=== PATIENT | male | born 1945 | race Caucasian/White ===

== ENCOUNTER 2022-02-13 05:01 | Inpatient (IN) ==
[2022-02-13] MEDS ORDERED: methylPREDNISolone SOD SUC 125 MG/2 ML VIAL IV STA (05:21)
[2022-02-13] MEDS ORDERED: ONDANSETRON 4 MG/2 ML VIAL IV STA (05:21)
[2022-02-13] MEDS ORDERED: PIPERACILLIN/TAZOBACTAM 3,375 MG in SODIUM CHLORIDE 0.9% 100 ML IV STA (05:21)
[2022-02-13] MEDS ORDERED: ALBUTEROL/IPRATROPIUM 3 ML NEB RESP TX STA (05:21)
[2022-02-13] MEDS ORDERED: ALBUTEROL NEB SOLN 5 MG/ML 20 ML/BOTTLE CONT NEB SCH (05:30)
[2022-02-13 05:59] LABS: Basophils # 0.1 10*3/uL (0.0-0.2); Basophils % 0.3 % (0.0-0.8); Eosinophils % 0.1 % (0.00-10.9); Hematocrit 42.2 VOL% (42.0-52.0); Hemoglobin 13.1 GM/DL (14.0-18.0); Immature Granulocytes % 1.9 %; Immature Granulocytes Absolute 0.35 #; Lymphocytes # 2.5 10*3/uL (1.4-4.0); Lymphocytes % 13.5 % (21.2-54.2); Mean Corpuscular Volume 102.4 FL (87-102); Mean Platelet Volume 10.4 FL (9.6-12.0); Monocytes # 2.1 10*3/uL (0.11-0.8); Monocytes % 11.4 % (1.7-12.7); Neutrophils % 72.8 % (38.7-73.9); Platelet Count 294 T/CUMM (130-400); Red Blood Count 4.12 MC/CUMM (3.8-5.5); Red Cell Distribution Width 12.7 % (9.3-17.3); White Blood Count 18.4 T/CUMM (4-12)
[2022-02-13 06:00] LABS: ABG Base Excess -28.3 MMOL/L (-2.5-2.5); ABG HCO3 5.9 MMOL/L (20-26); ABG Oxygen Saturation 91.2 % (95-100); ABG PCO2 21.9 MM HG (35-48); ABG TCO2 4.4 MMOL/L (23-27)
[2022-02-13 06:02] LABS: ABG PH 6.911 (7.35-7.45)
[2022-02-13 06:55] LABS: Alanine Aminotransferase 31 U/L (16-61); Albumin 3.4 G/DL (3.4-5.0); Alkaline Phosphatase 65 U/L (45-117); Aspartate Amino Transferase 21 U/L (0-37); Bilirubin,Total < 0.39 MG/DL (0.20-1.00); Blood Urea Nitrogen 71 MG/DL (7-18); Carbon Dioxide 6 MMOL/L (21-32); Chloride 83 MMOL/L (98-107); Glucose 436 MG/DL (74-106); Osmolality,Calculated 277.5 MOS/KG (273-304); Total Protein 7.7 G/DL (6.4-8.2)
[2022-02-13] MEDS ORDERED: SODIUM BICARBONATE 50 MEQ/50 ML VIAL IV STA ×2 (06:57→07:15)
[2022-02-13 06:58] LABS: Potassium 6.1 MMOL/L (3.5-5.1)
[2022-02-13 06:59] LABS: Sodium 118 MMOL/L (136-145)
[2022-02-13] MEDS ORDERED: ALBUTEROL 2.5 MG/3 ML NEB RESP TX PRN (07:12)
[2022-02-13] MEDS ORDERED: ONDANSETRON 4 MG/2 ML VIAL IV PRN (07:12)
[2022-02-13] MEDS ORDERED: SODIUM CHLORIDE 0.9% 1,000 ML IV ONE ×3 (07:15→09:55)
[2022-02-13] MEDS ORDERED: ETOMIDATE 20 MG/10 ML VIAL IV ONE ×4 (07:35→08:07)
[2022-02-13] MEDS ORDERED: SUCCINYLCHOLINE 200 MG/10 ML VIAL ONE (07:36)
[2022-02-13] MEDS: SODIUM CHLORIDE 0.9% 1,000 ML IV SCH ×2 (07:50→16:15)
[2022-02-13] MEDS ORDERED: SUCCINYLCHOLINE 200 MG/10 ML VIAL IV ONE (07:56)
[2022-02-13] MEDS ORDERED: INSULIN REGULAR 100 UNIT/ML IV ONE (07:56)
[2022-02-13] MEDS ORDERED: SODIUM BICARBONATE 50 MEQ/50 ML SYRINGE IV ONE (08:00)
[2022-02-13] MEDS ORDERED: NOREPINEPHRINE 8 MG in SODIUM CHLORIDE 0.9% 242 ML IV PRN (08:00)
[2022-02-13] MEDS: fentaNYL INJ 1,250 MCG in SODIUM CHLORIDE 0.9% 225 ML IV PRN ×2 (08:15→21:00)
[2022-02-13] MEDS: MIDAZOLAM 100 MG in SODIUM CHLORIDE 0.9% 80 ML IV PRN ×2 (08:20→19:00)
[2022-02-13 09:48] LABS: Arterial PCO2 iSTAT 43 MM HG (35-48); Arterial PO2 iSTAT 343 MM HG (80-95); Arterial pH iSTAT < 6.500 (7.35-7.45)
[2022-02-13 09:48] LABS: Arterial PCO2 iSTAT 40 MM HG (35-48); Arterial PO2 iSTAT 255 MM HG (80-95); Arterial pH iSTAT < 6.500 (7.35-7.45)
[2022-02-13] MEDS ORDERED: SODIUM BICARBONATE 50 MEQ/50 ML VIAL IV ONE (09:54)
[2022-02-13 09:55] LABS: ABG Base Excess -24.7 MMOL/L (-2.5-2.5); ABG HCO3 7.4 MMOL/L (20-26); ABG Oxygen Saturation 98.5 % (95-100); ABG PCO2 40.6 MM HG (35-48); ABG TCO2 8.1 MMOL/L (23-27)
[2022-02-13 09:58] LABS: ABG PH 6.901 (7.35-7.45)
[2022-02-13 10:12] LABS: Calcium 6.7 MG/DL (8.5-10.1); Osmolality,Calculated 289.6 MOS/KG (273-304); Potassium 5.5 MMOL/L (3.5-5.1)
[2022-02-13] MEDS: INSULIN REGULAR DRIP 100 ML IV PRN ×2 (12:00→23:18)
[2022-02-13] MEDS ORDERED: CALCIUM GLUCONATE RIDER 2,000 MG/100 ML PREMIX IV ONE ×2 (12:38→16:24)
[2022-02-13] MEDS: HEPARIN DRIP 25,000 UNITS/500 ML PREMIX IV SCH (13:00)
[2022-02-13] MEDS: LEVOTHYROXINE 25 MCG TABLET PO SCH (13:39)
[2022-02-13] MEDS: DEXAMETHASONE 4 MG/1 ML VIAL IV SCH (13:39)
[2022-02-13] MEDS: FAMOTIDINE 20 MG/2 ML VIAL IV SCH (13:40)
[2022-02-13] MEDS: AZITHROMYCIN INJ 500 MG in SODIUM CHLORIDE 0.9% 250 ML IV SCH (13:40)
[2022-02-13] MEDS: cefTRIAXone 1,000 MG in SODIUM CHLORIDE 0.9% 100 ML IV SCH (13:40)
[2022-02-13 16:20] LABS: Calcium 7.7 MG/DL (8.5-10.1); Osmolality,Calculated 277.9 MOS/KG (273-304); Potassium 4.4 MMOL/L (3.5-5.1)
[2022-02-13 16:21] LABS: ABG Base Excess -9.6 MMOL/L (-2.5-2.5); ABG HCO3 16.8 MMOL/L (20-26); ABG Oxygen Saturation 98.9 % (95-100); ABG PH 7.288 (7.35-7.45); ABG TCO2 14.9 MMOL/L (23-27)
[2022-02-13] MEDS: SODIUM BICARB INJ 150 MEQ in STERILE WATER INJ 1,000 ML IV SCH (20:37)
[2022-02-13] MEDS: NYSTATIN POWDER 15 GM BOTTLE TOP SCH (20:37)
[2022-02-13] MEDS ORDERED: DEXTROSE 5% 1,000 ML IV SCH (22:30)
[2022-02-13 22:38] LABS: Calcium 7.9 MG/DL (8.5-10.1); Osmolality,Calculated 276.8 MOS/KG (273-304); Potassium 4.5 MMOL/L (3.5-5.1)
[2022-02-14 03:21] LABS: ABG Base Excess 6.8 MMOL/L (-2.5-2.5); ABG HCO3 30.7 MMOL/L (20-26); ABG Oxygen Saturation 99.1 % (95-100); ABG PCO2 44.4 MM HG (35-48); ABG PH 7.459 (7.35-7.45); ABG TCO2 28.4 MMOL/L (23-27)
[2022-02-14 03:22] LABS: Basophils % 0.1 % (0.0-0.8); Hematocrit 28.5 VOL% (42.0-52.0); Immature Granulocytes % 0.8 %; Immature Granulocytes Absolute 0.08 #; Lymphocytes # 0.7 10*3/uL (1.4-4.0); Lymphocytes % 7.7 % (21.2-54.2); Mean Corpuscular HGB Conc 35.1 GM/DL (32-36); Mean Corpuscular Volume 91.3 FL (87-102); Monocytes # 1.3 10*3/uL (0.11-0.8); Neutrophils % 78.4 % (38.7-73.9); Platelet Count 111 T/CUMM (130-400); Red Blood Count 3.12 MC/CUMM (3.8-5.5); Red Cell Distribution Width 12.9 % (9.3-17.3); White Blood Count 9.6 T/CUMM (4-12)
[2022-02-14 03:44] LABS: Lymphocytes 3 % (20-55); Total Cells Counted 100
[2022-02-14 03:49] LABS: Albumin 2.3 G/DL (3.4-5.0); Bilirubin,Total 0.4 MG/DL (0.20-1.00); Calcium 7.1 MG/DL (8.5-10.1); Osmolality,Calculated 275.8 MOS/KG (273-304); Potassium 4.5 MMOL/L (3.5-5.1); Risk Ratio 4.46; Thyroid Stimulating Hormone 0.685 uIU/ml (0.358-3.74); Total Protein 5.5 G/DL (6.4-8.2); VLDL Cholesterol 28.8 MG/DL
[2022-02-14] MEDS: SODIUM BICARB INJ 150 MEQ in STERILE WATER INJ 1,000 ML IV SCH (05:15)
[2022-02-14] MEDS ORDERED: MAGNESIUM SULF RIDER 2 GM/50 ML PREMIX IV ONE (06:46)
[2022-02-14] MEDS ORDERED: CALCIUM GLUCONATE RIDER 1,000 MG/50 ML PREMIX IV ONE (06:46)
[2022-02-14] MEDS: INSULIN GLARGINE 100 UNIT/ML SUBCUT SCH (08:20)
[2022-02-14] MEDS: NYSTATIN POWDER 15 GM BOTTLE TOP SCH ×3 (08:34→20:30)
[2022-02-14] MEDS: FUROSEMIDE 40 MG/4 ML VIAL IV SCH (08:36)
[2022-02-14] MEDS: FAMOTIDINE 20 MG/2 ML VIAL IV SCH (08:36)
[2022-02-14] MEDS: DEXAMETHASONE 4 MG/1 ML VIAL IV SCH (08:36)
[2022-02-14] MEDS: MONTELUKAST 10 MG TABLET PO SCH (08:37)
[2022-02-14] MEDS: CHOLECALCIFEROL 1,000 UNIT TABLET PO SCH (08:37)
[2022-02-14] MEDS: HEPARIN DRIP 25,000 UNITS/500 ML PREMIX IV SCH ×2 (08:50→12:10)
[2022-02-14 10:23] LABS: Calcium 7.4 MG/DL (8.5-10.1); Osmolality,Calculated 272.1 MOS/KG (273-304); Potassium 4.3 MMOL/L (3.5-5.1)
[2022-02-14] MEDS: AZITHROMYCIN INJ 500 MG in SODIUM CHLORIDE 0.9% 250 ML IV SCH (12:02)
[2022-02-14] MEDS: LEVOTHYROXINE 25 MCG TABLET PO SCH (13:06)
[2022-02-14] MEDS: cefTRIAXone 1,000 MG in SODIUM CHLORIDE 0.9% 100 ML IV SCH (13:08)
[2022-02-14] MEDS ORDERED: DEXTROSE 10% 250 ML BAG IV PRN (13:40)
[2022-02-14] MEDS ORDERED: GLUCAGON 1 MG VIAL IM PRN (13:40)
[2022-02-14 15:58] LABS: Calcium 7.3 MG/DL (8.5-10.1); Osmolality,Calculated 281.1 MOS/KG (273-304); Potassium 4.8 MMOL/L (3.5-5.1)
[2022-02-14] MEDS: MIDAZOLAM 100 MG in SODIUM CHLORIDE 0.9% 80 ML IV PRN (17:00)
[2022-02-14] MEDS: fentaNYL INJ 1,250 MCG in SODIUM CHLORIDE 0.9% 225 ML IV PRN (17:00)
[2022-02-14] MEDS: INSULIN REGULAR 100 UNIT/ML SUBCUT SCH (17:02)
[2022-02-15] MEDS: INSULIN REGULAR 100 UNIT/ML SUBCUT SCH ×6 (00:47→20:30)
[2022-02-15 03:04] LABS: ABG Base Excess 5.4 MMOL/L (-2.5-2.5); ABG HCO3 29.2 MMOL/L (20-26); ABG Oxygen Saturation 95.2 % (95-100); ABG PCO2 42.3 MM HG (35-48); ABG PH 7.455 (7.35-7.45); ABG PO2 77.6 MM HG (80-95); ABG TCO2 26.9 MMOL/L (23-27)
[2022-02-15 03:15] LABS: Basophils % 0.1 % (0.0-0.8); Hematocrit 28.9 VOL% (42.0-52.0); Hemoglobin 9.9 GM/DL (14.0-18.0); Immature Granulocytes % 1.3 %; Immature Granulocytes Absolute 0.15 #; Lymphocytes # 0.7 10*3/uL (1.4-4.0); Lymphocytes % 5.9 % (21.2-54.2); Mean Corpuscular HGB Conc 34.3 GM/DL (32-36); Mean Corpuscular Volume 92.6 FL (87-102); Mean Platelet Volume 10.6 FL (9.6-12.0); Monocytes % 8.6 % (1.7-12.7); Neutrophils % 84.1 % (38.7-73.9); Platelet Count 133 T/CUMM (130-400); Red Blood Count 3.12 MC/CUMM (3.8-5.5); Red Cell Distribution Width 12.9 % (9.3-17.3); White Blood Count 11.5 T/CUMM (4-12)
[2022-02-15] MEDS: METOPROLOL TARTRATE 5 MG/5 ML VIAL IV PRN (03:20)
[2022-02-15 03:40] LABS: Albumin 2.4 G/DL (3.4-5.0); Bilirubin,Total 0.4 MG/DL (0.20-1.00); Calcium 7.1 MG/DL (8.5-10.1); Osmolality,Calculated 290.1 MOS/KG (273-304); Potassium 4.6 MMOL/L (3.5-5.1)
[2022-02-15] MEDS ORDERED: INSULIN REGULAR 100 UNIT/ML ONE (03:48)
[2022-02-15 03:53] LABS: Phosphorous 7.7 MG/DL (2.5-4.9)
[2022-02-15] MEDS: FAMOTIDINE 20 MG/2 ML VIAL IV SCH (06:30)
[2022-02-15] MEDS ORDERED: DEXMEDETOMIDINE 200 MCG in SODIUM CHLORIDE 0.9% 48 ML IV PRN (07:03)
[2022-02-15] MEDS: FUROSEMIDE 40 MG/4 ML VIAL IV SCH (08:12)
[2022-02-15] MEDS: INSULIN GLARGINE 100 UNIT/ML SUBCUT SCH ×2 (08:12→09:27)
[2022-02-15] MEDS ORDERED: SODIUM CHLORIDE 3% INJ 100 ML IV ONE (08:13)
[2022-02-15] MEDS: DEXAMETHASONE 4 MG/1 ML VIAL IV SCH (08:13)
[2022-02-15] MEDS: CHOLECALCIFEROL 1,000 UNIT TABLET PO SCH (08:15)
[2022-02-15] MEDS: MONTELUKAST 10 MG TABLET PO SCH (08:15)
[2022-02-15] MEDS ORDERED: SODIUM CHLORIDE 3% INJ 50 ML IV ONE (08:16)
[2022-02-15] MEDS: HEPARIN DRIP 25,000 UNITS/500 ML PREMIX IV SCH ×2 (08:56→20:49)
[2022-02-15] MEDS: NYSTATIN POWDER 15 GM BOTTLE TOP SCH ×3 (08:57→20:10)
[2022-02-15] MEDS ORDERED: hydroCHLOROthiazide 25 MG TABLET PO SCH (09:00)
[2022-02-15] MEDS: METOPROLOL TARTRATE 50 MG TABLET PO SCH ×2 (09:28→20:10)
[2022-02-15] MEDS: CALCIUM CARBONATE CHEW 500 MG TABLET PO SCH ×2 (09:28→20:10)
[2022-02-15] MEDS: cefTRIAXone 1,000 MG in SODIUM CHLORIDE 0.9% 100 ML IV SCH (12:10)
[2022-02-15] MEDS: AZITHROMYCIN INJ 500 MG in SODIUM CHLORIDE 0.9% 250 ML IV SCH (12:10)
[2022-02-15 15:26] LABS: Hepatitis B Core IgM Quant 0.14 Index; Hepatitis B Surface Ag Quant < 0.10 Index; Hepatitis B Surface Ag Result Non-Reactive (NonReactive); Hepatitis C Virus Ab Quant < 0.02 Index; Hepatitis C Virus Ab Result Non-Reactive (NonReactive)
[2022-02-15] MEDS: DONEPEZIL 10 MG TABLET PO SCH (20:10)
[2022-02-16] MEDS: INSULIN REGULAR 100 UNIT/ML SUBCUT SCH ×6 (00:20→20:02)
[2022-02-16 04:06] LABS: Basophils % 0.2 % (0.0-0.8); Hematocrit 29.1 VOL% (42.0-52.0); Hemoglobin 9.8 GM/DL (14.0-18.0); Immature Granulocytes % 2.6 %; Immature Granulocytes Absolute 0.33 #; Lymphocytes # 0.8 10*3/uL (1.4-4.0); Mean Corpuscular HGB Conc 33.7 GM/DL (32-36); Mean Corpuscular Volume 95.4 FL (87-102); Mean Platelet Volume 10.7 FL (9.6-12.0); Monocytes % 7.4 % (1.7-12.7); Neutrophils % 83.8 % (38.7-73.9); Platelet Count 142 T/CUMM (130-400); Red Blood Count 3.05 MC/CUMM (3.8-5.5); White Blood Count 12.9 T/CUMM (4-12)
[2022-02-16 04:08] LABS: ABG Base Excess 5.5 MMOL/L (-2.5-2.5); ABG HCO3 29.2 MMOL/L (20-26); ABG Oxygen Saturation 91.8 % (95-100); ABG PCO2 48.2 MM HG (35-48); ABG PH 7.422 (7.35-7.45); ABG PO2 69.7 MM HG (80-95); ABG TCO2 25.7 MMOL/L (23-27)
[2022-02-16 04:29] LABS: Albumin 2.4 G/DL (3.4-5.0); Bilirubin,Total 0.4 MG/DL (0.20-1.00); Calcium 7.5 MG/DL (8.5-10.1); Osmolality,Calculated 295.2 MOS/KG (273-304); Potassium 4.9 MMOL/L (3.5-5.1); Total Protein 6.2 G/DL (6.4-8.2)
[2022-02-16] MEDS: DEXAMETHASONE 4 MG/1 ML VIAL IV SCH (08:56)
[2022-02-16] MEDS: INSULIN GLARGINE 100 UNIT/ML SUBCUT SCH (08:56)
[2022-02-16] MEDS: FUROSEMIDE 40 MG/4 ML VIAL IV SCH (08:56)
[2022-02-16] MEDS: METOPROLOL TARTRATE 50 MG TABLET PO SCH ×2 (08:57→20:02)
[2022-02-16] MEDS: CALCIUM CARBONATE CHEW 500 MG TABLET PO SCH ×2 (08:57→20:02)
[2022-02-16] MEDS: MONTELUKAST 10 MG TABLET PO SCH (08:57)
[2022-02-16] MEDS: NYSTATIN POWDER 15 GM BOTTLE TOP SCH ×3 (08:57→20:02)
[2022-02-16] MEDS: CHOLECALCIFEROL 1,000 UNIT TABLET PO SCH (08:57)
[2022-02-16] MEDS: FAMOTIDINE 20 MG/2 ML VIAL IV SCH (09:00)
[2022-02-16] MEDS: MORPHINE 2 MG/1 ML SYRINGE IV PRN ×3 (09:54→21:35)
[2022-02-16] MEDS: AZITHROMYCIN INJ 500 MG in SODIUM CHLORIDE 0.9% 250 ML IV SCH (12:16)
[2022-02-16] MEDS: cefTRIAXone 1,000 MG in SODIUM CHLORIDE 0.9% 100 ML IV SCH (12:16)
[2022-02-16] MEDS: DONEPEZIL 10 MG TABLET PO SCH (20:02)
[2022-02-17] MEDS: INSULIN REGULAR 100 UNIT/ML SUBCUT SCH ×6 (00:02→21:41)
[2022-02-17] MEDS: HEPARIN DRIP 25,000 UNITS/500 ML PREMIX IV SCH ×2 (01:44→07:33)
[2022-02-17] MEDS: MORPHINE 2 MG/1 ML SYRINGE IV PRN ×4 (01:44→22:52)
[2022-02-17 03:39] LABS: ABG Base Excess 6.1 MMOL/L (-2.5-2.5); ABG HCO3 29.9 MMOL/L (20-26); ABG Oxygen Saturation 96.1 % (95-100); ABG PCO2 48.3 MM HG (35-48); ABG PH 7.422 (7.35-7.45); ABG PO2 90.2 MM HG (80-95); ABG TCO2 28.5 MMOL/L (23-27)
[2022-02-17] MEDS ORDERED: cloNIDine 0.1 MG TABLET PO ONE (04:20)
[2022-02-17 04:49] LABS: Basophils # 0.1 10*3/uL (0.0-0.2); Basophils % 0.5 % (0.0-0.8); Hematocrit 32.2 VOL% (42.0-52.0); Hemoglobin 10.5 GM/DL (14.0-18.0); Immature Granulocytes % 7.2 %; Immature Granulocytes Absolute 1.09 #; Lymphocytes % 6.7 % (21.2-54.2); Mean Corpuscular HGB Conc 32.6 GM/DL (32-36); Mean Corpuscular Volume 97.6 FL (87-102); Mean Platelet Volume 10.5 FL (9.6-12.0); Monocytes # 1.2 10*3/uL (0.11-0.8); Monocytes % 7.8 % (1.7-12.7); Neutrophils % 77.8 % (38.7-73.9); Platelet Count 177 T/CUMM (130-400); Red Cell Distribution Width 13.1 % (9.3-17.3); White Blood Count 15.1 T/CUMM (4-12)
[2022-02-17 05:11] LABS: Lymphocytes 5 % (20-55); Platelet Estimate Adequate; Total Cells Counted 100
[2022-02-17 05:13] LABS: Albumin 2.5 G/DL (3.4-5.0); Bilirubin,Total 0.4 MG/DL (0.20-1.00); Calcium 8.2 MG/DL (8.5-10.1); Osmolality,Calculated 303.7 MOS/KG (273-304); Potassium 4.7 MMOL/L (3.5-5.1); Total Protein 6.6 G/DL (6.4-8.2)
[2022-02-17 05:34] LABS: Phosphorous 4.7 MG/DL (2.5-4.9)
[2022-02-17] MEDS: FAMOTIDINE 20 MG/2 ML VIAL IV SCH (08:30)
[2022-02-17] MEDS: DEXAMETHASONE 4 MG/1 ML VIAL IV SCH (08:33)
[2022-02-17] MEDS: CALCIUM CARBONATE CHEW 500 MG TABLET PO SCH ×2 (08:34→21:43)
[2022-02-17] MEDS: INSULIN GLARGINE 100 UNIT/ML SUBCUT SCH (08:34)
[2022-02-17] MEDS: CHOLECALCIFEROL 1,000 UNIT TABLET PO SCH (08:34)
[2022-02-17] MEDS: METOPROLOL TARTRATE 50 MG TABLET PO SCH ×2 (08:34→21:42)
[2022-02-17] MEDS: NYSTATIN POWDER 15 GM BOTTLE TOP SCH ×3 (08:34→21:42)
[2022-02-17] MEDS: MONTELUKAST 10 MG TABLET PO SCH (08:34)
[2022-02-17] MEDS: FUROSEMIDE 40 MG/4 ML VIAL IV SCH (08:38)
[2022-02-17] MEDS: LEVOTHYROXINE 25 MCG TABLET PO SCH (12:20)
[2022-02-17] MEDS: cefTRIAXone 1,000 MG in SODIUM CHLORIDE 0.9% 100 ML IV SCH (12:20)
[2022-02-17] MEDS ORDERED: AZITHROMYCIN INJ 500 MG in SODIUM CHLORIDE 0.9% 250 ML IV SCH (13:30)
[2022-02-17] MEDS: AZITHROMYCIN INJ 500 MG in SODIUM CHLORIDE 0.9% 250 ML IV SCH (13:31)
[2022-02-17 21:32] LABS: INR 0.9; PT Patient Result 10.3 SECS (10.1-12.1); Partial Thromboplastin Time 37.9 SECS (23.7-32.9)
[2022-02-17] MEDS: DONEPEZIL 10 MG TABLET PO SCH (21:42)
[2022-02-18] MEDS: INSULIN REGULAR 100 UNIT/ML SUBCUT SCH ×6 (00:46→21:05)
[2022-02-18 03:39] LABS: Basophils # 0.2 10*3/uL (0.0-0.2); Basophils % 0.9 % (0.0-0.8); Eosinophils % 0.1 % (0.00-10.9); Hematocrit 34.9 VOL% (42.0-52.0); Hemoglobin 11.6 GM/DL (14.0-18.0); Immature Granulocytes % 11.1 %; Immature Granulocytes Absolute 1.87 #; Lymphocytes # 1.9 10*3/uL (1.4-4.0); Mean Corpuscular HGB Conc 33.2 GM/DL (32-36); Mean Corpuscular Volume 96.1 FL (87-102); Monocytes # 1.4 10*3/uL (0.11-0.8); NRBC # 0.05 10*3/uL; Neutrophils % 68.9 % (38.7-73.9); Platelet Count 175 T/CUMM (130-400); Red Blood Count 3.63 MC/CUMM (3.8-5.5); White Blood Count 16.8 T/CUMM (4-12)
[2022-02-18 03:59] LABS: Eosinophils 1 % (0-10); Lymphocytes 19 % (20-55); Metamyelocytes 2 %; Myelocytes 3 %; Nucleated Red Blood Cells 1 (0-5); Total Cells Counted 100
[2022-02-18 04:00] LABS: Macrocytosis Slight; Platelet Estimate Adequate
[2022-02-18 04:03] LABS: Albumin 2.6 G/DL (3.4-5.0); Bilirubin,Total 0.4 MG/DL (0.20-1.00); Calcium 8.8 MG/DL (8.5-10.1); Osmolality,Calculated 307.4 MOS/KG (273-304); Potassium 4.5 MMOL/L (3.5-5.1); Total Protein 6.8 G/DL (6.4-8.2)
[2022-02-18 04:04] LABS: INR 0.9; PT Patient Result 10.4 SECS (10.1-12.1); Partial Thromboplastin Time 39.2 SECS (23.7-32.9)
[2022-02-18] MEDS: HEPARIN DRIP 25,000 UNITS/500 ML PREMIX IV SCH ×2 (04:08→14:22)
[2022-02-18 04:17] LABS: Ferritin 99.5 ng/mL (26-388)
[2022-02-18 04:38] LABS: Arterial Base Excess iSTAT 10 MMOL/L (-2.5-2.5); Arterial Bicarbonate iSTAT 34.4 MMOL/L (20-26); Arterial O2 Saturation iSTAT 99 % (95-100); Arterial PCO2 iSTAT 46 MM HG (35-48); Arterial PO2 iSTAT 121 MM HG (80-95); Arterial Total CO2 iSTAT 36 MMO/L (23-27); Arterial pH iSTAT 7.478 (7.35-7.45)
[2022-02-18] MEDS: FUROSEMIDE 40 MG/4 ML VIAL IV SCH (08:48)
[2022-02-18] MEDS: CALCIUM CARBONATE CHEW 500 MG TABLET PO SCH ×2 (08:49→21:05)
[2022-02-18] MEDS: CHOLECALCIFEROL 1,000 UNIT TABLET PO SCH (08:49)
[2022-02-18] MEDS: MONTELUKAST 10 MG TABLET PO SCH (08:49)
[2022-02-18] MEDS: METOPROLOL TARTRATE 50 MG TABLET PO SCH ×2 (08:49→21:05)
[2022-02-18] MEDS: FAMOTIDINE 20 MG/2 ML VIAL IV SCH (08:49)
[2022-02-18] MEDS: INSULIN GLARGINE 100 UNIT/ML SUBCUT SCH (08:49)
[2022-02-18] MEDS: NYSTATIN POWDER 15 GM BOTTLE TOP SCH ×3 (08:50→21:05)
[2022-02-18] MEDS: DEXAMETHASONE 4 MG/1 ML VIAL IV SCH (08:50)
[2022-02-18 11:31] LABS: PT Patient Result 10.6 SECS (10.1-12.1); Partial Thromboplastin Time 38.5 SECS (23.7-32.9)
[2022-02-18] MEDS: LEVOTHYROXINE 25 MCG TABLET PO SCH (13:59)
[2022-02-18] MEDS: cefTRIAXone 1,000 MG in SODIUM CHLORIDE 0.9% 100 ML IV SCH (14:00)
[2022-02-18] MEDS: MORPHINE 2 MG/1 ML SYRINGE IV PRN ×3 (14:44→21:55)
[2022-02-18] MEDS: METOPROLOL TARTRATE 5 MG/5 ML VIAL IV PRN (15:00)
[2022-02-18] MEDS ORDERED: METOPROLOL TARTRATE 5 MG/5 ML VIAL IV PRN (17:49)
[2022-02-18] MEDS ORDERED: METOPROLOL TARTRATE 5 MG/5 ML VIAL IV ONE (18:00)
[2022-02-18] MEDS ORDERED: MORPHINE 2 MG/1 ML SYRINGE IV ONE (18:00)
[2022-02-18] MEDS: DONEPEZIL 10 MG TABLET PO SCH (21:05)
[2022-02-19] MEDS: INSULIN REGULAR 100 UNIT/ML SUBCUT SCH ×6 (00:15→20:34)
[2022-02-19] MEDS: HEPARIN DRIP 25,000 UNITS/500 ML PREMIX IV SCH ×3 (01:28→23:01)
[2022-02-19 03:38] LABS: Basophils # 0.1 10*3/uL (0.0-0.2); Basophils % 0.6 % (0.0-0.8); Eosinophils % 0.3 % (0.00-10.9); Hematocrit 33.6 VOL% (42.0-52.0); Immature Granulocytes % 11.5 %; Lymphocytes # 1.9 10*3/uL (1.4-4.0); Lymphocytes % 11.9 % (21.2-54.2); Mean Corpuscular HGB Conc 32.7 GM/DL (32-36); Mean Corpuscular Volume 97.4 FL (87-102); Mean Platelet Volume 10.2 FL (9.6-12.0); Monocytes # 1.3 10*3/uL (0.11-0.8); Monocytes % 8.2 % (1.7-12.7); NRBC # 0.06 10*3/uL; Neutrophils % 67.5 % (38.7-73.9); Platelet Count 166 T/CUMM (130-400); Red Blood Count 3.45 MC/CUMM (3.8-5.5); Red Cell Distribution Width 13.2 % (9.3-17.3); White Blood Count 15.7 T/CUMM (4-12)
[2022-02-19 03:57] LABS: Band Neutrophils 1 % (0-10); Lymphocytes 11 % (20-55); Nucleated Red Blood Cells 1 /100 WBC (0-5); Platelet Estimate Adequate; Total Cells Counted 100
[2022-02-19 03:58] LABS: Macrocytosis Slight
[2022-02-19 04:03] LABS: Albumin 2.3 G/DL (3.4-5.0); Bilirubin,Total 0.4 MG/DL (0.20-1.00); Calcium 8.7 MG/DL (8.5-10.1); Osmolality,Calculated 312.1 MOS/KG (273-304); Potassium 4.4 MMOL/L (3.5-5.1); Total Protein 6.3 G/DL (6.4-8.2)
[2022-02-19 04:21] LABS: Arterial Base Excess iSTAT 9 MMOL/L (-2.5-2.5); Arterial Bicarbonate iSTAT 34.5 MMOL/L (20-26); Arterial O2 Saturation iSTAT 98 % (95-100); Arterial PCO2 iSTAT 50 MM HG (35-48); Arterial PO2 iSTAT 98 MM HG (80-95); Arterial Total CO2 iSTAT 36 MMO/L (23-27); Arterial pH iSTAT 7.445 (7.35-7.45)
[2022-02-19 07:57] VITALS: BP 133/85
[2022-02-19] MEDS: FAMOTIDINE 20 MG/2 ML VIAL IV SCH (08:18)
[2022-02-19] MEDS: DEXAMETHASONE 4 MG/1 ML VIAL IV SCH (08:19)
[2022-02-19] MEDS: MONTELUKAST 10 MG TABLET PO SCH (08:20)
[2022-02-19] MEDS: CHOLECALCIFEROL 1,000 UNIT TABLET PO SCH (08:20)
[2022-02-19] MEDS: CALCIUM CARBONATE CHEW 500 MG TABLET PO SCH ×2 (08:20→20:33)
[2022-02-19] MEDS: NYSTATIN POWDER 15 GM BOTTLE TOP SCH ×3 (08:20→20:36)
[2022-02-19] MEDS: METOPROLOL TARTRATE 50 MG TABLET PO SCH ×2 (08:20→20:34)
[2022-02-19] MEDS: INSULIN GLARGINE 100 UNIT/ML SUBCUT SCH (08:20)
[2022-02-19] MEDS: cefTRIAXone 1,000 MG in SODIUM CHLORIDE 0.9% 100 ML IV SCH (13:56)
[2022-02-19] MEDS: LEVOTHYROXINE 25 MCG TABLET PO SCH (13:56)
[2022-02-19] MEDS: MORPHINE 2 MG/1 ML SYRINGE IV PRN (14:24)
[2022-02-19] MEDS ORDERED: DIGOXIN 0.5 MG/2 ML AMP IV ONE ×2 (14:33→20:30)
[2022-02-19] MEDS: PIPERACILLIN/TAZOBACTAM 3,375 MG in SODIUM CHLORIDE 0.9% 100 ML IV SCH ×2 (15:33→22:09)
[2022-02-19] MEDS ORDERED: MIDAZOLAM 2 MG/2 ML VIAL IV ONE (16:32)
[2022-02-19] MEDS ORDERED: MIDAZOLAM 2 MG/2 ML VIAL ONE (16:32)
[2022-02-19] MEDS: fentaNYL INJ 1,250 MCG in SODIUM CHLORIDE 0.9% 225 ML IV PRN (18:23)
[2022-02-19] MEDS: DONEPEZIL 10 MG TABLET PO SCH (20:36)
[2022-02-20] MEDS: INSULIN REGULAR 100 UNIT/ML SUBCUT SCH ×7 (00:15→23:45)
[2022-02-20 03:11] LABS: Arterial Base Excess iSTAT 7 MMOL/L (-2.5-2.5); Arterial Bicarbonate iSTAT 32.2 MMOL/L (20-26); Arterial O2 Saturation iSTAT 98 % (95-100); Arterial PCO2 iSTAT 47 MM HG (35-48); Arterial PO2 iSTAT 106 MM HG (80-95); Arterial Total CO2 iSTAT 34 MMO/L (23-27); Arterial pH iSTAT 7.445 (7.35-7.45)
[2022-02-20 04:35] LABS: Basophils # 0.1 10*3/uL (0.0-0.2); Basophils % 0.3 % (0.0-0.8); Eosinophils # 0.1 10*3/uL (0.0-0.87); Eosinophils % 0.3 % (0.00-10.9); Hematocrit 32.4 VOL% (42.0-52.0); Hemoglobin 10.5 GM/DL (14.0-18.0); Immature Granulocytes % 8.9 %; Immature Granulocytes Absolute 1.28 #; Lymphocytes # 1.3 10*3/uL (1.4-4.0); Lymphocytes % 9.2 % (21.2-54.2); Mean Corpuscular HGB Conc 32.4 GM/DL (32-36); Mean Corpuscular Volume 98.8 FL (87-102); Mean Platelet Volume 10.9 FL (9.6-12.0); Monocytes % 6.9 % (1.7-12.7); NRBC # 0.02 10*3/uL; Neutrophils % 74.4 % (38.7-73.9); Platelet Count 174 T/CUMM (130-400); Red Blood Count 3.28 MC/CUMM (3.8-5.5); Red Cell Distribution Width 13.2 % (9.3-17.3); White Blood Count 14.3 T/CUMM (4-12)
[2022-02-20 04:55] LABS: Band Neutrophils 4 % (0-10); Lymphocytes 5 % (20-55); Platelet Estimate Adequate; Total Cells Counted 100
[2022-02-20 04:56] LABS: Albumin 2.2 G/DL (3.4-5.0); Bilirubin,Total 0.5 MG/DL (0.20-1.00); Calcium 8.9 MG/DL (8.5-10.1); Osmolality,Calculated 304.8 MOS/KG (273-304); Potassium 4.5 MMOL/L (3.5-5.1); Total Protein 6.3 G/DL (6.4-8.2)
[2022-02-20 04:57] LABS: Phosphorous 4.8 MG/DL (2.5-4.9)
[2022-02-20] MEDS: PIPERACILLIN/TAZOBACTAM 3,375 MG in SODIUM CHLORIDE 0.9% 100 ML IV SCH ×3 (06:00→22:08)
[2022-02-20] MEDS: FAMOTIDINE 20 MG/2 ML VIAL IV SCH (08:43)
[2022-02-20] MEDS: MONTELUKAST 10 MG TABLET PO SCH (08:50)
[2022-02-20] MEDS: CALCIUM CARBONATE CHEW 500 MG TABLET PO SCH ×2 (08:50→20:37)
[2022-02-20] MEDS: NYSTATIN POWDER 15 GM BOTTLE TOP SCH ×3 (08:50→20:38)
[2022-02-20] MEDS: CHOLECALCIFEROL 1,000 UNIT TABLET PO SCH (08:50)
[2022-02-20] MEDS: METOPROLOL TARTRATE 50 MG TABLET PO SCH (08:50)
[2022-02-20] MEDS: INSULIN GLARGINE 100 UNIT/ML SUBCUT SCH (08:50)
[2022-02-20] MEDS: DEXAMETHASONE 4 MG/1 ML VIAL IV SCH (08:50)
[2022-02-20] MEDS: HEPARIN DRIP 25,000 UNITS/500 ML PREMIX IV SCH ×2 (08:51→20:38)
[2022-02-20] MEDS: LEVOTHYROXINE 25 MCG TABLET PO SCH (12:51)
[2022-02-20] MEDS: fentaNYL INJ 1,250 MCG in SODIUM CHLORIDE 0.9% 225 ML IV PRN (12:52)
[2022-02-20] MEDS: DONEPEZIL 10 MG TABLET PO SCH (20:37)
[2022-02-20] MEDS: METOPROLOL TARTRATE 25 MG TABLET PO SCH (20:59)
[2022-02-21 03:49] LABS: Arterial Base Excess iSTAT 7 MMOL/L (-2.5-2.5); Arterial Bicarbonate iSTAT 31.5 MMOL/L (20-26); Arterial O2 Saturation iSTAT 100 % (95-100); Arterial PCO2 iSTAT 45 MM HG (35-48); Arterial PO2 iSTAT 168 MM HG (80-95); Arterial Total CO2 iSTAT 33 MMO/L (23-27); Arterial pH iSTAT 7.453 (7.35-7.45)
[2022-02-21] MEDS: INSULIN REGULAR 100 UNIT/ML SUBCUT SCH ×5 (04:05→21:57)
[2022-02-21 04:18] LABS: Basophils # 0.1 10*3/uL (0.0-0.2); Basophils % 0.4 % (0.0-0.8); Eosinophils % 0.1 % (0.00-10.9); Hematocrit 29.5 VOL% (42.0-52.0); Hemoglobin 9.6 GM/DL (14.0-18.0); Immature Granulocytes % 10.2 %; Immature Granulocytes Absolute 1.46 #; Lymphocytes # 1.2 10*3/uL (1.4-4.0); Lymphocytes % 8.2 % (21.2-54.2); Mean Corpuscular HGB Conc 32.5 GM/DL (32-36); Mean Platelet Volume 10.6 FL (9.6-12.0); Monocytes # 1.1 10*3/uL (0.11-0.8); Monocytes % 7.3 % (1.7-12.7); NRBC # 0.02 10*3/uL; Neutrophils % 73.8 % (38.7-73.9); Platelet Count 164 T/CUMM (130-400); Red Blood Count 2.98 MC/CUMM (3.8-5.5); Red Cell Distribution Width 13.1 % (9.3-17.3); White Blood Count 14.3 T/CUMM (4-12)
[2022-02-21 04:39] LABS: Band Neutrophils 3 % (0-10); Lymphocytes 8 % (20-55); Platelet Estimate Adequate; Total Cells Counted 100
[2022-02-21 04:43] LABS: Bilirubin,Total 0.4 MG/DL (0.20-1.00); Calcium 8.5 MG/DL (8.5-10.1); Osmolality,Calculated 310.1 MOS/KG (273-304); Potassium 4.9 MMOL/L (3.5-5.1); Total Protein 6.1 G/DL (6.4-8.2)
[2022-02-21 05:05] LABS: Ferritin 161.3 ng/mL (26-388)
[2022-02-21 05:25] LABS: Folate 11.31 NG/ML (5.38-24.0)
[2022-02-21] MEDS: PIPERACILLIN/TAZOBACTAM 3,375 MG in SODIUM CHLORIDE 0.9% 100 ML IV SCH ×2 (06:14→16:20)
[2022-02-21] MEDS: FAMOTIDINE 20 MG/2 ML VIAL IV SCH (08:04)
[2022-02-21] MEDS: HEPARIN DRIP 25,000 UNITS/500 ML PREMIX IV SCH ×2 (08:04→17:53)
[2022-02-21] MEDS: MORPHINE 2 MG/1 ML SYRINGE IV PRN (08:54)
[2022-02-21] MEDS: DEXAMETHASONE 4 MG/1 ML VIAL IV SCH (09:40)
[2022-02-21] MEDS: MONTELUKAST 10 MG TABLET PO SCH (09:40)
[2022-02-21] MEDS: CALCIUM CARBONATE CHEW 500 MG TABLET PO SCH ×2 (09:41→21:58)
[2022-02-21] MEDS: CHOLECALCIFEROL 1,000 UNIT TABLET PO SCH (09:41)
[2022-02-21] MEDS: INSULIN GLARGINE 100 UNIT/ML SUBCUT SCH (09:42)
[2022-02-21] MEDS: METOPROLOL TARTRATE 25 MG TABLET PO SCH ×3 (10:49→21:58)
[2022-02-21] MEDS: NYSTATIN POWDER 15 GM BOTTLE TOP SCH ×3 (10:49→21:58)
[2022-02-21] MEDS: LEVOTHYROXINE 25 MCG TABLET PO SCH (13:34)
[2022-02-21] MEDS: DONEPEZIL 10 MG TABLET PO SCH (21:58)
[2022-02-21] MEDS: fentaNYL INJ 1,250 MCG in SODIUM CHLORIDE 0.9% 225 ML IV PRN (21:59)
[2022-02-21] MEDS: ZINC OXIDE PASTE 113 GM TUBE TOP PRN (21:59)
[2022-02-22] MEDS: PIPERACILLIN/TAZOBACTAM 3,375 MG in SODIUM CHLORIDE 0.9% 100 ML IV SCH ×3 (00:30→18:55)
[2022-02-22] MEDS: INSULIN REGULAR 100 UNIT/ML SUBCUT SCH ×6 (01:09→21:11)
[2022-02-22 03:33] LABS: Basophils % 0.2 % (0.0-0.8); Hematocrit 30.5 VOL% (42.0-52.0); Hemoglobin 9.7 GM/DL (14.0-18.0); Immature Granulocytes % 10.3 %; Immature Granulocytes Absolute 1.65 #; Lymphocytes # 1.2 10*3/uL (1.4-4.0); Lymphocytes % 7.3 % (21.2-54.2); Mean Corpuscular HGB Conc 31.8 GM/DL (32-36); Mean Corpuscular Volume 98.7 FL (87-102); Monocytes % 5.9 % (1.7-12.7); NRBC # 0.02 10*3/uL; Neutrophils % 76.3 % (38.7-73.9); Platelet Count 223 T/CUMM (130-400); Red Blood Count 3.09 MC/CUMM (3.8-5.5); Red Cell Distribution Width 13.3 % (9.3-17.3); White Blood Count 16.1 T/CUMM (4-12)
[2022-02-22 04:06] LABS: Bilirubin,Total 0.4 MG/DL (0.20-1.00); Calcium 9.2 MG/DL (8.5-10.1); Osmolality,Calculated 300.8 MOS/KG (273-304); Potassium 4.8 MMOL/L (3.5-5.1); Total Protein 6.1 G/DL (6.4-8.2)
[2022-02-22 04:13] LABS: Band Neutrophils 2 % (0-10); Lymphocytes 6 % (20-55); Total Cells Counted 100
[2022-02-22 04:14] LABS: Polychromasia Slight
[2022-02-22 04:15] LABS: Platelet Estimate Normal
[2022-02-22 04:37] LABS: Arterial Base Excess iSTAT 7 MMOL/L (-2.5-2.5); Arterial Bicarbonate iSTAT 30.3 MMOL/L (20-26); Arterial O2 Saturation iSTAT 100 % (95-100); Arterial PCO2 iSTAT 39 MM HG (35-48); Arterial PO2 iSTAT 158 MM HG (80-95); Arterial Total CO2 iSTAT 31 MMO/L (23-27); Arterial pH iSTAT 7.496 (7.35-7.45)
[2022-02-22] MEDS: FAMOTIDINE 20 MG/2 ML VIAL IV SCH (08:00)
[2022-02-22] MEDS: DEXAMETHASONE 4 MG/1 ML VIAL IV SCH (08:41)
[2022-02-22] MEDS: HEPARIN DRIP 25,000 UNITS/500 ML PREMIX IV SCH (09:16)
[2022-02-22] MEDS: NYSTATIN POWDER 15 GM BOTTLE TOP SCH ×3 (09:17→21:11)
[2022-02-22] MEDS: INSULIN GLARGINE 100 UNIT/ML SUBCUT SCH (09:17)
[2022-02-22] MEDS: METOPROLOL TARTRATE 25 MG TABLET PO SCH ×2 (09:17→21:11)
[2022-02-22] MEDS: CHOLECALCIFEROL 1,000 UNIT TABLET PO SCH (09:18)
[2022-02-22] MEDS: MONTELUKAST 10 MG TABLET PO SCH (09:18)
[2022-02-22] MEDS: CALCIUM CARBONATE CHEW 500 MG TABLET PO SCH ×2 (09:18→21:11)
[2022-02-22 10:02] LABS: PT Patient Result 11.1 SECS (10.1-12.1); Partial Thromboplastin Time 40.9 SECS (23.7-32.9)
[2022-02-22] MEDS: APIXABAN 5 MG TABLET PO SCH ×2 (10:15→21:11)
[2022-02-22] MEDS: DONEPEZIL 10 MG TABLET PO SCH (21:11)
[2022-02-23] MEDS: MORPHINE 2 MG/1 ML SYRINGE IV PRN (01:09)
[2022-02-23] MEDS: INSULIN REGULAR 100 UNIT/ML SUBCUT SCH ×6 (01:11→21:20)
[2022-02-23] MEDS: PIPERACILLIN/TAZOBACTAM 3,375 MG in SODIUM CHLORIDE 0.9% 100 ML IV SCH ×3 (02:58→17:31)
[2022-02-23 04:02] LABS: Arterial Base Excess iSTAT 4 MMOL/L (-2.5-2.5); Arterial Bicarbonate iSTAT 28.3 MMOL/L (20-26); Arterial O2 Saturation iSTAT 95 % (95-100); Arterial PCO2 iSTAT 38 MM HG (35-48); Arterial PO2 iSTAT 71 MM HG (80-95); Arterial Total CO2 iSTAT 29 MMO/L (23-27); Arterial pH iSTAT 7.477 (7.35-7.45)
[2022-02-23 04:06] LABS: Basophils # 0.1 10*3/uL (0.0-0.2); Basophils % 0.3 % (0.0-0.8); Eosinophils % 0.1 % (0.00-10.9); Hematocrit 33.1 VOL% (42.0-52.0); Hemoglobin 10.7 GM/DL (14.0-18.0); Immature Granulocytes Absolute 0.96 #; Lymphocytes # 2.3 10*3/uL (1.4-4.0); Lymphocytes % 11.8 % (21.2-54.2); Mean Corpuscular HGB Conc 32.3 GM/DL (32-36); Mean Corpuscular Volume 97.9 FL (87-102); Mean Platelet Volume 10.1 FL (9.6-12.0); Monocytes # 1.4 10*3/uL (0.11-0.8); Monocytes % 7.4 % (1.7-12.7); NRBC # 0.04 10*3/uL; Neutrophils % 75.4 % (38.7-73.9); Platelet Count 291 T/CUMM (130-400); Red Blood Count 3.38 MC/CUMM (3.8-5.5); Red Cell Distribution Width 13.5 % (9.3-17.3); White Blood Count 19.1 T/CUMM (4-12)
[2022-02-23 04:31] LABS: Lymphocytes 11 % (20-55); Platelet Estimate Normal; Polychromasia Slight; Total Cells Counted 100
[2022-02-23 04:41] LABS: Albumin 2.3 G/DL (3.4-5.0); Bilirubin,Total 0.5 MG/DL (0.20-1.00); Calcium 9.7 MG/DL (8.5-10.1); Osmolality,Calculated 299.1 MOS/KG (273-304); Potassium 4.1 MMOL/L (3.5-5.1); Total Protein 6.6 G/DL (6.4-8.2)
[2022-02-23 05:12] LABS: Ferritin 132.7 ng/mL (26-388)
[2022-02-23] MEDS: FAMOTIDINE 20 MG/2 ML VIAL IV SCH (08:19)
[2022-02-23] MEDS: NYSTATIN POWDER 15 GM BOTTLE TOP SCH ×3 (08:20→21:21)
[2022-02-23] MEDS: INSULIN GLARGINE 100 UNIT/ML SUBCUT SCH (08:20)
[2022-02-23] MEDS: DEXAMETHASONE 4 MG/1 ML VIAL IV SCH (08:20)
[2022-02-23] MEDS: APIXABAN 5 MG TABLET PO SCH ×2 (08:20→21:20)
[2022-02-23] MEDS: METOPROLOL TARTRATE 25 MG TABLET PO SCH ×2 (08:20→21:20)
[2022-02-23] MEDS: CHOLECALCIFEROL 1,000 UNIT TABLET PO SCH (08:21)
[2022-02-23] MEDS: MONTELUKAST 10 MG TABLET PO SCH (08:21)
[2022-02-23] MEDS: CALCIUM CARBONATE CHEW 500 MG TABLET PO SCH ×2 (08:21→21:21)
[2022-02-23] MEDS: VANCOMYCIN INJ 1,250 MG in SODIUM CHLORIDE 0.9% 250 ML IV SCH (13:37)
[2022-02-23] MEDS ORDERED: DEXTROSE 50% 25 GM/50 ML VIAL IV PRN (14:34)
[2022-02-23] MEDS ORDERED: MORPHINE 2 MG/1 ML SYRINGE IV PRN (14:36)
[2022-02-23] MEDS ORDERED: BISACODYL 5 MG TABLET PO PRN (14:36)
[2022-02-23] MEDS ORDERED: ACETAMINOPHEN 325 MG TABLET PO PRN (14:36)
[2022-02-23] MEDS: SODIUM CHLORIDE 3% 4 ML NEB RESP TX SCH (19:06)
[2022-02-23] MEDS ORDERED: MELATONIN 3 MG TABLET PO PRN (19:30)
[2022-02-23] MEDS: DONEPEZIL 10 MG TABLET PO SCH (21:20)
[2022-02-23] MEDS: DOCUSATE SODIUM 100 MG CAPSULE PO SCH (21:20)
[2022-02-24] MEDS: INSULIN REGULAR 100 UNIT/ML SUBCUT SCH ×6 (01:12→23:21)
[2022-02-24] MEDS: PIPERACILLIN/TAZOBACTAM 3,375 MG in SODIUM CHLORIDE 0.9% 100 ML IV SCH (02:59)
[2022-02-24 04:05] LABS: Basophils % 0.1 % (0.0-0.8); Eosinophils # 0.1 10*3/uL (0.0-0.87); Eosinophils % 0.4 % (0.00-10.9); Hematocrit 34.1 VOL% (42.0-52.0); Hemoglobin 11.2 GM/DL (14.0-18.0); Immature Granulocytes % 1.8 %; Immature Granulocytes Absolute 0.29 #; Lymphocytes # 2.2 10*3/uL (1.4-4.0); Lymphocytes % 13.8 % (21.2-54.2); Mean Corpuscular HGB Conc 32.8 GM/DL (32-36); Mean Platelet Volume 10.3 FL (9.6-12.0); Monocytes % 6.2 % (1.7-12.7); Neutrophils % 77.7 % (38.7-73.9); Platelet Count 292 T/CUMM (130-400); Red Blood Count 3.48 MC/CUMM (3.8-5.5); Red Cell Distribution Width 13.7 % (9.3-17.3); White Blood Count 16.2 T/CUMM (4-12)
[2022-02-24 04:30] LABS: Albumin 2.2 G/DL (3.4-5.0); Bilirubin,Total 0.6 MG/DL (0.20-1.00); Calcium 8.9 MG/DL (8.5-10.1); Osmolality,Calculated 300.8 MOS/KG (273-304); Total Protein 6.5 G/DL (6.4-8.2)
[2022-02-24 04:53] LABS: Ferritin 107.6 ng/mL (26-388); Phosphorous 5.2 MG/DL (2.5-4.9)
[2022-02-24] MEDS: VANCOMYCIN INJ 1,250 MG in SODIUM CHLORIDE 0.9% 250 ML IV SCH (06:47)
[2022-02-24] MEDS: SODIUM CHLORIDE 3% 4 ML NEB RESP TX SCH ×2 (08:00→19:12)
[2022-02-24] MEDS ORDERED: CYANOCOBALAMIN 1000 MCG/1 ML VIAL IM SCH (09:00)
[2022-02-24] MEDS: INSULIN GLARGINE 100 UNIT/ML SUBCUT SCH (09:40)
[2022-02-24] MEDS ORDERED: DEXAMETHASONE 4 MG/1 ML VIAL IV ONE (09:40)
[2022-02-24] MEDS: CHOLECALCIFEROL 1,000 UNIT TABLET PO SCH (09:41)
[2022-02-24] MEDS: MONTELUKAST 10 MG TABLET PO SCH (09:41)
[2022-02-24] MEDS: APIXABAN 5 MG TABLET PO SCH ×2 (09:41→21:50)
[2022-02-24] MEDS: CALCIUM CARBONATE CHEW 500 MG TABLET PO SCH ×2 (09:41→23:23)
[2022-02-24] MEDS: FAMOTIDINE 20 MG/2 ML VIAL IV SCH (09:41)
[2022-02-24] MEDS: METOPROLOL TARTRATE 25 MG TABLET PO SCH ×2 (09:41→23:23)
[2022-02-24] MEDS: NYSTATIN POWDER 15 GM BOTTLE TOP SCH ×3 (09:42→23:23)
[2022-02-24] MEDS: DOCUSATE SODIUM 100 MG CAPSULE PO SCH ×2 (09:42→21:50)
[2022-02-24] MEDS: LEVOTHYROXINE 25 MCG TABLET PO SCH (12:14)
[2022-02-24 13:45] LABS: Arterial Base Excess iSTAT 1 MMOL/L (-2.5-2.5); Arterial Bicarbonate iSTAT 24.7 MMOL/L (20-26); Arterial O2 Saturation iSTAT 95 % (95-100); Arterial PCO2 iSTAT 35 MM HG (35-48); Arterial PO2 iSTAT 68 MM HG (80-95); Arterial Total CO2 iSTAT 26 MMO/L (23-27); Arterial pH iSTAT 7.463 (7.35-7.45)
[2022-02-24] MEDS: DONEPEZIL 10 MG TABLET PO SCH (21:50)
[2022-02-25] MEDS: INSULIN REGULAR 100 UNIT/ML SUBCUT SCH ×6 (00:54→21:29)
[2022-02-25 04:13] LABS: Basophils % 0.1 % (0.0-0.8); Eosinophils # 0.1 10*3/uL (0.0-0.87); Eosinophils % 0.9 % (0.00-10.9); Hematocrit 34.7 VOL% (42.0-52.0); Hemoglobin 11.1 GM/DL (14.0-18.0); Immature Granulocytes % 1.1 %; Immature Granulocytes Absolute 0.17 #; Lymphocytes # 1.8 10*3/uL (1.4-4.0); Lymphocytes % 12.3 % (21.2-54.2); Mean Corpuscular Volume 99.7 FL (87-102); Mean Platelet Volume 10.1 FL (9.6-12.0); Monocytes # 0.9 10*3/uL (0.11-0.8); Monocytes % 6.1 % (1.7-12.7); Neutrophils % 79.5 % (38.7-73.9); Platelet Count 300 T/CUMM (130-400); Red Blood Count 3.48 MC/CUMM (3.8-5.5); Red Cell Distribution Width 13.9 % (9.3-17.3); White Blood Count 14.8 T/CUMM (4-12)
[2022-02-25 04:26] LABS: Calcium 9.2 MG/DL (8.5-10.1); Osmolality,Calculated 298.1 MOS/KG (273-304); Potassium 4.2 MMOL/L (3.5-5.1)
[2022-02-25] MEDS: VANCOMYCIN INJ 1,250 MG in SODIUM CHLORIDE 0.9% 250 ML IV SCH (06:23)
[2022-02-25] MEDS: SODIUM CHLORIDE 3% 4 ML NEB RESP TX SCH ×2 (07:23→19:54)
[2022-02-25] MEDS: FAMOTIDINE 20 MG/2 ML VIAL IV SCH (10:02)
[2022-02-25] MEDS: INSULIN GLARGINE 100 UNIT/ML SUBCUT SCH (10:04)
[2022-02-25] MEDS ORDERED: LOPERAMIDE 2 MG CAPSULE PO PRN (10:28)
[2022-02-25] MEDS: LEVOTHYROXINE 25 MCG TABLET PO SCH (12:25)
[2022-02-25] MEDS: DEXAMETHASONE 0.5 MG TABLET PO SCH (13:36)
[2022-02-25] MEDS: APIXABAN 5 MG TABLET PO SCH ×2 (13:36→21:10)
[2022-02-25] MEDS: CALCIUM CARBONATE CHEW 500 MG TABLET PO SCH ×2 (13:37→21:10)
[2022-02-25] MEDS: MONTELUKAST 10 MG TABLET PO SCH (13:37)
[2022-02-25] MEDS: CHOLECALCIFEROL 1,000 UNIT TABLET PO SCH (13:37)
[2022-02-25] MEDS: NYSTATIN POWDER 15 GM BOTTLE TOP SCH ×3 (13:37→21:10)
[2022-02-25] MEDS: METOPROLOL TARTRATE 25 MG TABLET PO SCH ×2 (13:37→21:30)
[2022-02-25] MEDS ORDERED: PHENOL 1.4% THROAT SPRAY 177 ML BOTTLE PO PRN (15:00)
[2022-02-25] MEDS: DOCUSATE SODIUM 100 MG CAPSULE PO SCH (15:35)
[2022-02-25] MEDS: DONEPEZIL 10 MG TABLET PO SCH (21:10)
[2022-02-25] MEDS: ZINC OXIDE PASTE 113 GM TUBE TOP PRN (21:31)
[2022-02-26] MEDS: VANCOMYCIN INJ 1,250 MG in SODIUM CHLORIDE 0.9% 250 ML IV SCH (01:15)
[2022-02-26] MEDS: INSULIN REGULAR 100 UNIT/ML SUBCUT SCH ×4 (01:16→12:31)
[2022-02-26 03:44] LABS: Basophils % 0.1 % (0.0-0.8); Eosinophils # 0.2 10*3/uL (0.0-0.87); Hematocrit 35.3 VOL% (42.0-52.0); Hemoglobin 11.2 GM/DL (14.0-18.0); Immature Granulocytes % 0.6 %; Immature Granulocytes Absolute 0.09 #; Lymphocytes # 1.9 10*3/uL (1.4-4.0); Lymphocytes % 12.1 % (21.2-54.2); Mean Corpuscular HGB Conc 31.7 GM/DL (32-36); Mean Corpuscular Volume 99.4 FL (87-102); Mean Platelet Volume 9.8 FL (9.6-12.0); Monocytes % 6.2 % (1.7-12.7); Platelet Count 315 T/CUMM (130-400); Red Blood Count 3.55 MC/CUMM (3.8-5.5); Red Cell Distribution Width 13.8 % (9.3-17.3); White Blood Count 15.9 T/CUMM (4-12)
[2022-02-26 03:57] LABS: Calcium 9.1 MG/DL (8.5-10.1); Osmolality,Calculated 296.8 MOS/KG (273-304); Potassium 4.3 MMOL/L (3.5-5.1)
[2022-02-26] MEDS: SODIUM CHLORIDE 3% 4 ML NEB RESP TX SCH (07:06)
[2022-02-26] MEDS: METOPROLOL TARTRATE 25 MG TABLET PO SCH (08:08)
[2022-02-26] MEDS: DEXAMETHASONE 0.5 MG TABLET PO SCH (08:08)
[2022-02-26] MEDS: FAMOTIDINE 20 MG/2 ML VIAL IV SCH (08:08)
[2022-02-26] MEDS: APIXABAN 5 MG TABLET PO SCH (08:08)
[2022-02-26] MEDS: CALCIUM CARBONATE CHEW 500 MG TABLET PO SCH (08:09)
[2022-02-26] MEDS: NYSTATIN POWDER 15 GM BOTTLE TOP SCH ×2 (08:09→14:09)
[2022-02-26] MEDS: CHOLECALCIFEROL 1,000 UNIT TABLET PO SCH (08:09)
[2022-02-26] MEDS: MONTELUKAST 10 MG TABLET PO SCH (08:09)
[2022-02-26] MEDS: INSULIN GLARGINE 100 UNIT/ML SUBCUT SCH (08:59)
[2022-02-26] MEDS: LEVOTHYROXINE 25 MCG TABLET PO SCH (12:32)
== END 2022-02-26 15:55 | DRG 207 ==
LOC: N.ED 05:01 → SUATTDRO 07:12 → N.EDINP 07:12 → N.CC 07:35
PROVIDERS: ADMIT Internal Medicine; ATTEND Internal Medicine